=== PATIENT | female | born 1960 | race Caucasian/White ===

== ENCOUNTER 2017-04-04 20:31 | Emergency (ER) | payer BC, OTHER ==
[2017-04-04 20:46] VITALS: BP 141/102
== END 2017-04-04 23:37 | disposition left against medical advice (07) ==
LOC: ED 20:31
DX: K62.5 Hemorrhage of anus and rectum (principal); Z53.21 Procedure and treatment not carried out due to patient leaving prior to being seen by health care provider

== ENCOUNTER 2019-05-06 21:23 | Emergency (ER) | payer BC ==
[2019-05-06 21:38] VITALS: BP 165/98
[2019-05-06 21:54] LABS: Influenza A Molecular Negative (Negative); Influenza B Molecular Negative (Negative)
[2019-05-06] MEDS ORDERED: Naproxen TAB* 250 MG PO ONE (22:02)
[2019-05-06] MEDS ORDERED: Oseltamivir CAP* 75 MG CAP PO ONE (22:07)
--- NOTE | 2019-05-06 22:25 | ED ---
Influenza-Like Illness - HPI Summary HPI Summary: 59-year-old white female presents with sudden and fever chills body aches since yesterday associated with sore throat. Denies cough fever shortness of breath, only recent travel to [place] via car. - History of Current Complaint Chief Complaint: UCGeneralIllness Time Seen by Provider: 05/06/19 21:51 Hx Obtained From: Patient Severity: Moderate Associated Signs & Symptoms: Myalgia, Sore Throat - Allergy/Home Medications Allergies/Adverse Reactions: Allergies Allergy/AdvReac Type Severity Reaction Status Date / Time No Known Allergies Allergy Verified 05/06/19 21:44 Home Medications: Home Medications Levothyroxine TAB* [Synthroid 150 MCG TAB*] 150 mcg PO 0800 07/28/12 [History Confirmed 05/06/19] Venlafaxine EXT RELEASE CAP* [Effexor Xr CAP*] 150 mg PO DAILY 07/28/12 [ History Confirmed 05/06/19] Naproxen [Naproxen 500 mg tab] 500 mg PO BID 10 Days #20 tablet 05/06/19 [Rx] Oseltamivir CAP* [Tamiflu CAP*] 75 mg PO BID 5 Days #10 cap 05/06/19 [Rx] PMH/Surg Hx/FS Hx/Imm Hx Previously Healthy: Yes Endocrine/Hematology History: Reports: Hx Thyroid Disease Denies: Hx Anticoagulant Therapy Cardiovascular History: Denies: Other Cardiovascular Problems/Disorders - DENIES Respiratory History: Denies: Hx Asthma, Other Respiratory Problems/Disorders - DENIES Sensory History: Reports: Hx Contacts or Glasses Opthamlomology History: Reports: Hx Contacts or Glasses Neurological History: Denies: Other Neuro Impairments/Disorders - DENIES Psychiatric History: Reports: Hx Anxiety, Hx Depression - Surgical History Surgery Procedure, Year, and Place: cyst from breast removed. tubal ligation Infectious Disease History: No Infectious Disease History: Denies: Traveled Outside the [place] in Last 30 Days - Social History Alcohol Use: Daily Alcohol Amount: 3 DRINKS Substance Use Type: Reports: None Smoking Status (MU): Former Smoker Review of Systems Positive: Fever, Chills, Fatigue Eyes: Negative ENT: Negative Positive: Other Respiratory: Negative Gastrointestinal: Negative Genitourinary: Negative Positive: Myalgia Skin: Negative Neurological/Mental Status: Negative Psychological: Normal All Other Systems Reviewed And Are Negative: Yes Physical Exam - Summary Physical Exam Summary: Vital Signs Reviewed: Yes Gen: NAD Eye Exam: Normal Eyes: Positive: Conjunctiva Clear ENT: Bilateral anterior cervical lymph nodes swelling, moderate, mild pharyngeal erythema without exudates. Neck: Supple Respiratory: Lungs clear, Normal breath sounds. Negative: Crackles, Rhonchi, Stridor, Wheezing Cardiovascular Exam: Normal, RRR, S1, S2 Abdomen: NT/ND Musculoskeletal Exam: diffuse myalgias Neurological Exam: Normal Psychological Exam: Normal Skin Exam: Normal Vital Signs On Initial Exam: Initial Vitals Temp Pulse Resp BP Pulse Ox 39.3 C 85 17 165/98 99 05/06/19 21:31 05/06/19 21:31 05/06/19 21:31 05/06/19 21:31 05/06/19 21:31 Diagnostics - Vital Signs Vital Signs Temp Pulse Resp BP Pulse Ox 05/06/19 22:07 38.6 C 05/06/19 21:31 39.3 C 85 17 165/98 99 - Laboratory Lab Results: Lab Results 05/06/19 05/06/19 Range/Units 21:43 21:59 Influenza A (Rapid) Negative (Negative) Influenza B (Rapid) Negative (Negative) Group A Strep Rapid Negative (Negative) Lab Statement: Any lab studies that have been ordered have been reviewed, and results considered in the medical decision making process. Flu Symptom Course/Dx - Course Assessment/Plan: Rapid flu and rapid strep negative patient exhibits acute signs and symptoms of influenza-like illness will treat with Tamiflu and naproxen as directed. - Diagnoses Provider Diagnoses: Acute viral syndrome, Myalgia Discharge ED - Sign-Out/Discharge Documenting (check all that apply): Patient Departure All imaging exams completed and their final reports reviewed: Yes - Discharge Plan Condition: Stable Disposition: HOME Prescriptions: Naproxen [Naproxen 500 mg tab] 500 mg PO BID 20 Days #10 tablet Oseltamivir CAP* [Tamiflu CAP*] 75 mg PO BID 5 Days #10 cap Patient Education Materials: Viral Syndrome (ED) Referrals: Hilda Jefferson MD [Primary Care Provider] - - Billing Disposition and Condition Condition: STABLE Disposition: Home
== END 2019-05-06 22:40 | disposition home or self-care (01) ==
LOC: UCEAST 21:23
DX: B34.9 Viral infection, unspecified (principal); M79.10 Myalgia, unspecified site; J02.9 Acute pharyngitis, unspecified; E07.9 Disorder of thyroid, unspecified; R53.83 Other fatigue; Z79.890 Hormone replacement therapy; Z87.891 Personal history of nicotine dependence
CPT/HCPCS: 87651; 99212; A9270-GY; G0463

== ENCOUNTER 2019-05-10 08:29 | Emergency (ER) | payer SELFPAY ==
[2019-05-10 09:53] VITALS: BP 130/85
--- NOTE | 2019-05-10 10:19 | UC ---
Throat Pain/Nasal Derrek HPI - HPI Summary HPI Summary: CHIEF COMPLAINT: HPI: This is a 59-year-old who was seen here on 05/06/19 at which time she tested negative for strep and for influenza. She returns with continuing sore throat particularly last night into today. She did have an elevated temperature on her earlier visit but denies elevated temperature at this point. She also reports a cough with colored sputum discharge. Description of Pain:mild throat pain. VITAL SIGNS REVIEWED. Within normal limits unless noted here. NURSES NOTE REVIEWED. "Here Tuesday with temp of 103.7, negative both flu and strep, still has throat pain, temp. Taking tamiflu and naproxen. " - History of Current Complaint Chief Complaint: UCGeneralIllness Stated Complaint: SORE THROAT Time Seen by Provider: 05/10/19 09:26 Hx Last Menstrual Period: post Pain Intensity: 5 - Allergies/Home Medications Allergies/Adverse Reactions: Allergies Allergy/AdvReac Type Severity Reaction Status Date / Time No Known Allergies Allergy Verified 05/10/19 09:53 Home Medications: Home Medications Levothyroxine TAB* [Synthroid 150 MCG TAB*] 150 mcg PO 0800 07/28/12 [History Confirmed 05/06/19] Venlafaxine EXT RELEASE CAP* [Effexor Xr CAP*] 150 mg PO DAILY 07/28/12 [ History Confirmed 05/06/19] Naproxen [Naproxen 500 mg tab] 500 mg PO BID 10 Days #20 tablet 05/06/19 [Rx] Oseltamivir CAP* [Tamiflu CAP*] 75 mg PO BID 5 Days #10 cap 05/06/19 [Rx] Amoxicillin PO (*) [Amoxicillin 875 MG (*)] 875 mg PO BID #14 tab MDD 2 [Rx] Lidocaine 2% VISCOUS* 5 ml MT BID #1 btl MDD 2 05/10/19 [Rx] PMH/Surg Hx/FS Hx/Imm Hx - Additional Past Medical History Additional PMH: PAST MEDICAL HISTORY- CHRONIC and RECURRENT HEALTH PROBLEM LIST REVIEWED.hypothyroid. Information relevant to present complaint: VISIT HISTORY REVIEWED. MEDICATIONS & ALLERGIES REVIEWED. HYPERTENSION STATUS:none FAMILY HISTORY: Positive for: hypertension,cancer. 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 Previously Healthy: Yes Other History Of: Negative For: Anticoagulant Therapy - Surgical History Surgical History: Yes Surgery Procedure, Year, and Place: cyst from breast removed. tubal ligation - Social History Alcohol Use: Daily Alcohol Amount: 3 DRINKS Substance Use Type: None Smoking Status (MU): Former Smoker - Immunization History Most Recent Tetanus Shot: in past 2 years Review of Systems All Other Systems Reviewed And Are Negative: Yes Skin: Positive: Negative Eyes: Positive: Negative ENT: Positive: Sore Throat, Sinus Congestion, Sinus Pain/Tenderness Respiratory: Positive: Cough - green sputum Cardiovascular: Positive: Negative Gastrointestinal: Positive: Negative Is Patient Immunocompromised?: No Physical Exam - Summary Physical Exam Summary: Appearance: The patient is well-appearing, is in no pain or distress, and is well-nourished. Eyes: Conjunctiva are clear. Pupils are equal and reactive to light and accommodation. Extra ocular muscle movement is intact. ENT: The hearing is grossly normal, the pharynx is mildly erythematous; there is no anterior adenopathy; the sinuses are mildly tender, maxillary; and the TMs are normal. There is no muffled or hoarse voice. No stridor. Neck: The neck is supple and there is no lymphadenopathy. Respiratory: The chest is non-tender to palpation and without crepitus. The lungs are clear, there are normal breath sounds, and there is no respiratory distress. No wheezes, rales or rhonchi. Cardiovascular: Heart sounds reveal a regular rate and rhythm. There are no clicks, rubs or murmurs. There are no carotid bruits or thrills. Circulation is grossly intact. Abdomen: The abdomen is soft and nontender. There is no organomegaly. Bowel sounds are present and within normal limits. No point tenderness at McBurneys point. No CVA tenderness. Musculoskeletal: Strength is intact. The patient moves all extremities. Neurological: The patient is alert. Motor and sensory are examination grossly intact. Speech is normal. Psychological: The patient displays age appropriate behavior, and is conversant. GCS=15. Skin: Negative for rashes. Laboratory Results - last 24 hr 05/10/19 09:38 Group A Strep Rapid Negative Triage Information Reviewed: Yes Vital Signs: Initial Vital Signs Temp 97.8 F 05/10/19 09:46 Pulse 64 05/10/19 09:46 Resp 20 05/10/19 09:46 BP 130/85 05/10/19 09:46 Pulse Ox 96 05/10/19 09:46 Vital Signs Reviewed: Yes Throat Pain/Nasal Course/Dx - Course Course Of Treatment: This is a 59-year-old who was seen here on 05/06/19 at which time she tested negative for strep and for influenza. She returns with continuing sore throat particularly last night into today. She did have an elevated temperature on her earlier visit but denies elevated temperature at this point. She also reports a cough with colored sputum discharge.patient is on medication for hypothyroidism and anxiety. Physical examination shows mildly tender sinuses and slightly erythematous throat. In consultation with the patient was decided that she would be tested for Covid 19 and go into home isolation. Patient will be treated with viscous lidocaine and given 5 days of amoxicillin for sinusitis. She knows to recheck if her condition worsens. - Differential Dx/Diagnosis Differential Diagnosis/HQI/PQRI: Laryngitis, Sinusitis, Tonsillitis, URI Provider Diagnosis: Sinusitis Discharge ED - Sign-Out/Discharge Documenting (check all that apply): Patient Departure All imaging exams completed and their final reports reviewed: No Studies - Discharge Plan Condition: Stable Disposition: HOME Patient Education Materials: Sinusitis (ED) Referrals: Hilda Jefferson MD [Primary Care Provider] - Additional Instructions: WE DISCUSSED: PLEASE SEEK CARE AT THE EMERGENCY DEPARTMENT IF SYMPTOMS WORSEN OR IF NEW SYMPTOMS DEVELOP. FOLLOW UP WITH YOUR PRIMARY CARE PHYSICIAN IF CONDITION CONTINUES BEYOND 3 DAYS WITHOUT IMPROVEMENT. YOUR DIAGNOSIS IS: Sinusitis; sore throat. YOUR PRESCRIPTION RECOMMENDATION IS:. Viscous lidocaine for throat comfort; amoxicillin for your sinuses, cough and sputum production for 7 days. FOR PAIN AND/OR SLEEP: For pain: Ibuprofen (Motrin and other brand names) 400-600mg PLUS acetaminophen (Tylenol and other brand names) 500mg - 1000mg every 8 hours. Other instructions: Drink lots of warm fluids; tea and honey will provide comfort and protection. Warm water gargles, with tsp of salt per 8 ounces of water, gargle for a few seconds and spit out; repeat every three hours. Use lozenges to keep throat protected. For pain and/or sleep: - Billing Disposition and Condition Condition: STABLE Disposition: Home
== END 2019-05-10 11:14 | disposition home or self-care (01) ==
LOC: UCEAST 08:29
DX: J32.9 Chronic sinusitis, unspecified (principal); E03.9 Hypothyroidism, unspecified; Z79.890 Hormone replacement therapy; Z87.891 Personal history of nicotine dependence
CPT/HCPCS: 87651; 99213; G0463; U0002

== ENCOUNTER 2019-05-21 09:26 | Emergency (ER) | payer SELFPAY ==
--- NOTE | 2019-05-21 10:22 | UC ---
Throat Pain/Nasal Derrek HPI - HPI Summary HPI Summary: 59-year-old woman comes in with chief complaint of sinusitis symptoms. On May 10, 2019 patient was tested for Covid and she was negative. Her initial symptoms started around 06 May 2019 with bodyaches fevers chills. Patient reports she had influenza. By the she had a sore throat and green rhinorrhea and was treated with amoxicillin for 7 days which she for some 15 of May. Since she finished the amoxicillin she is having sinus pressure postnasal drip green rhinorrhea and a sore throat. She had some chills yesterday but no measured fever. She did take ibuprofen which did help with her symptoms. She had some mild myalgias overnight. She reports they were mild in comparison to when she had when she had the flu. No cough no shortness of breath. - History of Current Complaint Chief Complaint: UCRespiratory Stated Complaint: COVID NEG,FLU LIKE SYMPTOMS Time Seen by Provider: 05/21/19 09:49 Hx Last Menstrual Period: post Pain Intensity: 3 - Allergies/Home Medications Allergies/Adverse Reactions: Allergies Allergy/AdvReac Type Severity Reaction Status Date / Time No Known Allergies Allergy Verified 05/21/19 09:39 Home Medications: Home Medications Levothyroxine TAB* [Synthroid 150 MCG TAB*] 150 mcg PO 0800 07/28/12 [History Confirmed 05/21/19] Venlafaxine EXT RELEASE CAP* [Effexor Xr CAP*] 225 mg PO DAILY 07/28/12 [ History Confirmed 05/21/19] Amoxicillin/Clavulanate TAB* [Augmentin TAB 875*] 875 mg PO BID #20 tab [Rx] Fluticasone NASAL SPRAY 50MCG* [Flonase NASAL SPRAY 50MCG*] 2 spray BOTH NARES DAILY #1 btl 05/21/19 [Rx] Melatonin 1 mg PO BEDTIME 05/21/19 [History Confirmed 05/21/19] PMH/Surg Hx/FS Hx/Imm Hx Previously Healthy: Yes Endocrine History: Hypothyroidism Psychological History: Anxiety Other History Of: Negative For: Anticoagulant Therapy - Surgical History Surgical History: Yes Surgery Procedure, Year, and Place: cyst from breast removed. tubal ligation - Family History Known Family History: Positive: Non-Contributory - Social History Alcohol Use: None Alcohol Amount: 3 DRINKS Substance Use Type: None Smoking Status (MU): Former Smoker - Immunization History Most Recent Tetanus Shot: in past 2 years Review of Systems All Other Systems Reviewed And Are Negative: Yes Constitutional: Positive: Chills - see hpi Skin: Positive: Negative Eyes: Positive: Negative ENT: Positive: Sore Throat, Nasal Discharge, Sinus Congestion, Sinus Pain/ Tenderness Respiratory: Positive: Negative Cardiovascular: Positive: Negative Gastrointestinal: Positive: Negative Motor: Positive: Negative Neurovascular: Positive: Negative Musculoskeletal: Positive: Myalgia Neurological/Mental Status: Positive: Negative Psychological: Positive: Negative Is Patient Immunocompromised?: No Physical Exam Triage Information Reviewed: Yes Appearance: Well-Appearing, No Pain Distress, Well-Nourished Vital Signs Reviewed: Yes Eye Exam: Normal Eyes: Positive: Conjunctiva Clear ENT: Positive: Pharynx normal, Nasal drainage Neck: Positive: Supple Respiratory: Positive: Lungs clear, Normal breath sounds, No respiratory distress Cardiovascular: Positive: RRR Musculoskeletal: Positive: Strength Intact, ROM Intact Neurological: Positive: Alert, Muscle Tone Normal Psychological: Positive: Age Appropriate Behavior Skin Exam: Normal Throat Pain/Nasal Course/Dx - Course Course Of Treatment: Patient's symptoms are consistent with sinusitis. She had chills yesterday but no measured fever she has no fever here. She has no cough or shortness of breath making covid unlikely. Patient will treat with Augmentin and Flonase and increased her fluids. Follow-up primary care doctor if not complete improved get reevaluated sooner if worse or any questions or concerns. - Differential Dx/Diagnosis Provider Diagnosis: Sinusitis Discharge ED - Sign-Out/Discharge Documenting (check all that apply): Patient Departure All imaging exams completed and their final reports reviewed: No Studies - Discharge Plan Condition: Stable Disposition: HOME Prescriptions: Amoxicillin/Clavulanate TAB* [Augmentin TAB 875*] 875 mg PO BID #20 tab Fluticasone NASAL SPRAY 50MCG* [Flonase NASAL SPRAY 50MCG*] 2 spray BOTH NARES DAILY #1 btl Patient Education Materials: Sinusitis (ED) Forms: *Work Release Referrals: Hilda Jefferson MD [Primary Care Provider] - Additional Instructions: FOLLOW UP WITH YOUR DOCTOR IF NOT COMPLETELY IMPROVED. GET REEVALUATED IF NOT IMPROVED OR WORSE OR ANY QUESTIONS OR CONCERNS. - Billing Disposition and Condition Condition: STABLE Disposition: Home
[2019-05-21 10:24] VITALS: BP 153/92
== END 2019-05-21 10:25 | disposition home or self-care (01) ==
LOC: UCEAST 09:26
DX: J32.9 Chronic sinusitis, unspecified (principal); E03.9 Hypothyroidism, unspecified; F41.9 Anxiety disorder, unspecified; Z79.890 Hormone replacement therapy; Z79.899 Other long term (current) drug therapy; Z87.891 Personal history of nicotine dependence
CPT/HCPCS: 99212; G0463

== ENCOUNTER 2023-07-23 12:04 | Observation (INO) ==
[2023-07-23 12:43] LABS: ABS Eosinophils 0.2 10^3/uL (0.0-0.5); ABS Lymphocytes 1.4 10^3/uL (1.0-4.8); ABS Monocytes 0.6 10^3/uL (0.0-0.9); ABS Neutrophils 5.7 10^3/uL (1.5-7.6); Eosinophil % 2.7 %; Hematocrit 31.4 % (35-45); Lymphocyte % 17.7 %; Mean Corpuscular Hemoglobin 23.3 pg (27-33); Mean Corpuscular Hgb Conc 31.9 g/dL (31-36); Mean Corpuscular Volume 73.2 fL (80-97); Mean Platelet Volume 7.4 fL (7.5-11.2); Platelet Count 298 10^3/uL (150-450); Red Blood Count 4.29 10^6/uL (3.63-4.92); Red Cell Distribution Width 18.3 % (12-17)
[2023-07-23 12:45] LABS: INR 1.05 (0.83-1.13)
[2023-07-23 13:16] LABS: Albumin/Globulin Ratio 1.5 (1-3); Calcium 10.6 mg/dL (8.6-10.3); Creatinine, Serum 0.92 mg/dL (0.51-0.95); Globulin 2.6 g/dL (2-4); Potassium 4.3 mmol/L (3.5-5.0); Total Bilirubin 0.4 mg/dL (0.2-1.0); Total Protein 6.6 g/dL (6.4-8.9); eGFR CKD-EPI 69.1 (>60)
[2023-07-23 14:07] LABS: High Sensitivity Troponin 1 Hr 3 pg/mL (<15)
[2023-07-23] MEDS ORDERED: Senna TAB 8.6 mg TAB PO PRN (16:45)
[2023-07-23] MEDS: Enoxaparin 40 MG/0.4 ML SYR SUBCUT SCH (21:11)
[2023-07-23 22:42] LABS: High Sensitivity Troponin 1 Hr 3 pg/mL (<15)
[2023-07-23] MEDS: Venlafaxine XR 75 mg PO SCH (22:54)
[2023-07-24 05:54] LABS: Hematocrit 28.9 % (35-45); Hemoglobin 9.4 g/dL (11.5-14.3); Mean Platelet Volume 7.1 fL (7.5-11.2); Platelet Count 271 10^3/uL (150-450); Red Cell Distribution Width 18.4 % (12-17); White Blood Count 7.1 10^3/uL (3.8-11.8)
[2023-07-24 06:48] LABS: ABS Basophils 0.1 10^3/uL (0.0-0.1); ABS Eosinophils 0.2 10^3/uL (0.0-0.5); ABS Lymphocytes 1.6 10^3/uL (1.0-4.8); ABS Monocytes 0.6 10^3/uL (0.0-0.9); ABS Neutrophils 4.6 10^3/uL (1.5-7.6); Anisocytosis 2+; Eosinophil % 3.1 %; Hypochromasia 1+; Lymphocyte % 21.9 %; Mean Corpuscular Hemoglobin 23.4 pg (27-33); Mean Corpuscular Hgb Conc 32.4 g/dL (31-36); Mean Corpuscular Volume 72.3 fL (80-97); Microcytosis 1+
[2023-07-24] MEDS ORDERED: Venlafaxine XR 75 mg PO SCH (09:00)
[2023-07-24 09:35] LABS: Ferritin 5.7 ng/mL (11-307)
[2023-07-24] MEDS ORDERED: Iron Sucrose 200 MG in NS 0.9% 100 ml BAG 100 ML IVPB SCH (11:00)
[2023-07-24] MEDS ORDERED: Calcium Carb (TUMS) 500 mg CHEW TAB PO PRN (11:32)
[2023-07-24] MEDS: Iron Sucrose 200 MG in NS 0.9% 100 ml BAG 100 ML IVPB SCH (13:24)
[2023-07-25 06:03] LABS: Calcium 10.4 mg/dL (8.6-10.3); Creatinine, Serum 0.86 mg/dL (0.51-0.95); Potassium 4.5 mmol/L (3.5-5.0); eGFR CKD-EPI 74.9 (>60)
[2023-07-25 06:16] VITALS: BP 139/96
[2023-07-25 06:16] LABS: ABS Basophils 0.1 10^3/uL (0.0-0.1); ABS Eosinophils 0.2 10^3/uL (0.0-0.5); ABS Lymphocytes 1.1 10^3/uL (1.0-4.8); ABS Monocytes 0.5 10^3/uL (0.0-0.9); ABS Neutrophils 4.7 10^3/uL (1.5-7.6); Eosinophil % 3.3 %; Hematocrit 30.3 % (35-45); Lymphocyte % 16.9 %; Mean Corpuscular Hemoglobin 23.8 pg (27-33); Mean Corpuscular Hgb Conc 32.9 g/dL (31-36); Mean Corpuscular Volume 72.3 fL (80-97); Mean Platelet Volume 7.3 fL (7.5-11.2); Platelet Count 286 10^3/uL (150-450); Red Blood Count 4.19 10^6/uL (3.63-4.92); Red Cell Distribution Width 17.8 % (12-17); White Blood Count 6.5 10^3/uL (3.8-11.8)
== END 2023-07-25 14:45 | disposition home or self-care (01) ==
LOC: EDHOLD 12:04 → ED 12:04 → SUATTDRO 16:45 → MEDTELE 17:32
PROVIDERS: ADMIT Internal Medicine; ATTEND Student in an Organized Health Care Education/Training Program